=== PATIENT | male | born 1965 | race Caucasian/White ===

== ENCOUNTER 2016-09-29 12:04 | Outpatient (CLI) ==
[2016-09-29 12:21] LABS: BASOPHILS # (AUTO) 0.1 K/uL (0-0.2); BASOPHILS % (AUTO) 0.9 % (0.0-3.0); EOSINOPHILS # (AUTO) 0.2 K/ul (0.0-0.7); HEMATOCRIT 46.8 % (42.0-52.0); HEMOGLOBIN 16.8 g/dl (14.0-18.0); IMMATURE GRANULOCYTE % (AUTO) 0.2 % (0.0-5.0); LYMPHOCYTES # (AUTO) 2.6 K/uL (0.60-3.4); LYMPHOCYTES % (AUTO) 31.8 (10.0-50.0); MEAN CORPUSCULAR HEMOGLOBIN 31.3 pg (27.0-31.0); MEAN CORPUSCULAR HGB CONC 35.9 (31.8-35.4); MEAN CORPUSCULAR VOLUME 87.2 fl (80.0-94.0); MONOCYTES # (AUTO) 0.6 K/uL (0.4-2.0); MONOCYTES % (AUTO) 7.8 (0-10); NEUTROPHILS # (AUTO) 4.5 K/ul (2.0-6.9); NEUTROPHILS % (AUTO) 56.3; PLATELET COUNT 305 10^3/uL (140-440); RED BLOOD COUNT 5.37 10^6/ul (4.70-6.10); WHITE BLOOD COUNT 8.03 K/ul (4.2-10.2)
--- NOTE | 2016-09-29 13:00 | DI ---
EXAM: Left shoulder three views HISTORY: Pain COMPARISON: None FINDINGS: The bones are normal. The medial, lateral, and patellofemoral compartments are normal in height. No joint effusion. IMPERSSION: Normal examination.
== END 2016-09-29 12:05 | disposition home or self-care (01) ==
LOC: LAB 12:04
PROVIDERS: ATTEND Nurse Practitioner
DX: M25.512 Pain in left shoulder (principal); E11.40 Type 2 diabetes mellitus with diabetic neuropathy, unspecified; K92.1 Melena; R10.30 Lower abdominal pain, unspecified
CPT/HCPCS: 36415; 85025

== ENCOUNTER 2017-10-25 08:57 | Outpatient (CLI) | END 2017-10-25 08:58 | disposition home or self-care (01) | LOC: LAB 08:57 | PROVIDERS: ATTEND Nurse Practitioner | DX: E11.65 Type 2 diabetes mellitus with hyperglycemia (principal); E55.9 Vitamin D deficiency, unspecified; E78.00 Pure hypercholesterolemia, unspecified | CPT/HCPCS: 36415; 80053; 80061; 82043; 82306; 82607; 83036 ==

== ENCOUNTER 2018-03-22 09:38 | Outpatient (CLI) | END 2018-03-22 09:39 | disposition home or self-care (01) | LOC: LAB 09:38 | PROVIDERS: ATTEND Nurse Practitioner | DX: E55.9 Vitamin D deficiency, unspecified (principal); E11.65 Type 2 diabetes mellitus with hyperglycemia; R53.83 Other fatigue | CPT/HCPCS: 36415; 80048; 82306; 83036; 84402; 84403 ==

== ENCOUNTER 2018-07-24 08:32 | Outpatient (CLI) ==
--- NOTE | 2018-07-24 09:06 | DI ---
EXAM: CHEST FRONTAL AND LATERAL VIEWS HISTORY: Chest pain. COMPARISON: 06/05/2014 FINDINGS: Heart size and mediastinal contour within normal limits. No acute infiltrates. Ellie l vascularity with no pleural fluid or pneumothorax. The bony thorax has no acute finding. Stabiliz ation hardware of the cervical spine. IMPRESSION: No acute process.
--- NOTE | 2018-07-24 09:09 | DI ---
EXAM: Lumbar spine five views HISTORY: Back pain, radiation down left leg. FINDINGS: Compared to 02/17/2014. General bone density appears normal. No noticeable scoliosis. Mild bilateral sacroiliac joint arthr opathy. Postop changes of the lumbosacral junction appear stable. There is no spondylolisthesis, lo ss of vertebral body height or acute fracture. Degenerative disc and facet disease lower lumbar spin e and lumbosacral junction with probable bony encroachment on the neural foramina at this level. Vas cular calcifications incidentally noted. IMPRESSION: Degenerative disc and facet disease lower lumbar spine and lumbosacral junction with pro bable bony encroachment on the neural foramina at this level. Stable postop changes of the lower spi ne. No acute fracture.
== END 2018-07-24 08:33 | disposition home or self-care (01) ==
LOC: CAR 08:32
PROVIDERS: ATTEND Nurse Practitioner
DX: R07.9 Chest pain, unspecified (principal); E11.65 Type 2 diabetes mellitus with hyperglycemia; R53.81 Other malaise; R53.83 Other fatigue; M54.5 Low back pain
CPT/HCPCS: 36415; 80048; 83036; 83735; 84402; 84403; 93005; 93010

== ENCOUNTER 2018-09-05 13:29 | Outpatient (CLI) ==
--- NOTE | 2018-09-05 14:30 | DI ---
Exam: Seven views of the lumbosacral spine with flexion and extension imaging. Comparison: 07/24/2018. Reason for exam: Osteoarthritis. FINDINGS: Similar appearing operative changes are seen after pedicle screw and freida fixation spanning L5-S1 with intervertebral body graft arthroplasty at L4-L5. There is similar appearing moderate deg enerative disease with osteophyte formation. There is no evidence of hardware complication or graft extrusion. No abnormal motion segments are seen with flexion or extension radiographs. Impression: 1. Similar appearing operative changes without evidence of periprosthetic fracture or hardware compl ication. 2. No acute fracture is seen. 3. No abnormal motion segments with flexion or extension imaging
--- NOTE | 2018-09-05 14:33 | DI ---
Exam: Two views Bilateral hips include pelvis. Comparison: MRI left hip performed 03/28/2016. Reason for exam: Hip pain. FINDINGS: The pelvic ring is intact. No acute fracture or dislocation is seen in either hip. There is mild degenerative disease seen in both left and right hip. Partially imaged operative changes ar e seen in the lumbosacral spine. Impression: No acute fracture or dislocation is seen in either hip.
== END 2018-09-05 13:30 | disposition home or self-care (01) ==
LOC: RAD 13:29
PROVIDERS: ATTEND Neurological Surgery
DX: R10.32 Left lower quadrant pain (principal); G89.29 Other chronic pain; M25.552 Pain in left hip; M47.26 Other spondylosis with radiculopathy, lumbar region; M54.5 Low back pain

== ENCOUNTER 2018-10-11 18:36 | Emergency (ER) | payer BC, OTHER ==
[2018-10-11 18:44] VITALS: TEMP 96.7; BMI 33.4
--- NOTE | 2018-10-11 19:06 | ED.PDOC ---
General ED Provider: Dr. HUMBLE OLIVER MD Chief Complaint: Headache Stated Complaint: LEBRON like before Time Seen by Physician: 19:00 Mode of Arrival: Wheelchair Information Source: Patient, Family Exam Limitations: No limitations Primary Care Provider: JOSE LESTER Nursing and Triage Documentation Reviewed and Agree: Yes Does patient meet sepsis criteria?: No If yes, has appropriate treatment been initiated?: Yes System Inflammatory Response Syndrome: Not Applicable Sepsis Protocol: For patient's 13 years and over: Temp is 96.8 and below OR 101 and greater Pulse >90 BPM Resp >20/minute Acutely Altered Mental Status Are patient's symptoms suggestive of a new infection, such as: -Pneumonia -Skin, Soft Tissue -Endocarditis -UTI -Bone, Joint Infection -Implantable Device -Acute Abdominal Infection -Wound Infection -Meningitis -Blood Stream Catheter Infection -Unknown Review of Systems - Review Of Systems Constitutional: Reports: No symptoms Eyes: Reports: No symptoms Ears, Nose, Mouth, Throat: Reports: No symptoms Respiratory: Reports: No symptoms Cardiac: Reports: No symptoms GI: Reports: No symptoms, Nausea : Reports: No symptoms Musculoskeletal: Reports: No symptoms Skin: Reports: No symptoms Neurological: Reports: No symptoms, Other (LEBRON almost gone since laying down) Endocrine: Reports: No symptoms Hematologic/Lymphatic: Reports: No symptoms All Other Systems: Reviewed and Negative Past Medical History - Past Medical History Endocrine: Reports: DM 1 Cardiovascular: Reports: Hypertension Respiratory: Reports: None Hematological: Reports: None Gastrointestinal: Reports: GERD Genitourinary: Reports: None Neuro/Psych: Reports: None Musculoskeletal: Reports: Back Pain, Joint Pain 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) - Surgical History General Surgical History: Reports: Back Surgery - Family History Family History: Reports: Unknown - Social History Smoking Status: Chews tobacco Hx Substance Use: No Alcohol Screening: Occasionally - Immunizations Tetanus Shot up to Date: No Physical Exam - Physical Exam Appearance: Well-appearing, Obese Pain Distress: Mild Eyes: KATIA, EOMI, Conjunctiva clear ENT: Ears normal, Nose normal, Oropharynx normal Neck: Supple Respiratory: Airway patent Cardiovascular: RRR, Pulses normal, No rub, No murmur GI/: Soft Musculoskeletal: Normal strength, ROM intact, No edema, No calf tenderness Skin: Warm, Dry, Normal color Neurological: Sensation intact, Motor intact, Reflexes intact, Cranial nerves intact, Alert, Oriented Psychiatric: Affect appropriate, Mood appropriate, Anxious Critical Care Note - Critical Care Note Total Time (mins): 0 Course - Course Hematology/Chemistry: 10/11/18 19:16 10/11/18 19:16 Orders, Labs, Meds: Lab Review 10/11/18 10/11/18 10/11/18 19:16 19:16 20:34 WBC 16.69 H RBC 5.62 Hgb 17.2 Hct 48.6 MCV 86.5 MCH 30.6 MCHC 35.4 RDW Coeff of Ilir 12.2 Plt Count 335 Immature Gran % (Auto) 0.4 Neut % (Auto) 75.4 Lymph % (Auto) 16.5 Boyd % (Auto) 6.2 Eos % (Auto) 1.1 Baso % (Auto) 0.4 Immature Gran # (Auto) 0.1 Neut # (Auto) 12.6 H Lymph # (Auto) 2.8 Boyd # (Auto) 1.0 Eos # (Auto) 0.2 Baso # (Auto) 0.1 Sodium 136.8 Potassium 3.83 Chloride 99.0 Carbon Dioxide 22.1 Anion Gap 19.53 BUN 19.7 Creatinine 1.01 Estimated GFR (MDRD) 77.00 BUN/Creatinine Ratio 19.50 Glucose 284.5 H Calcium 10.24 H Urine Color Yellow Urine Clarity Clear Urine pH 5.0 Ur Specific [place] 1.015 Urine Protein Negative Urine Glucose (UA) 2+ Urine Ketones 2+ Urine Blood Negative Urine Nitrite Negative Urine Bilirubin Negative Urine Urobilinogen 0.2 Ur Leukocyte Esterase Negative Orders Category Date Time Status IV [ED IV/MEDIPORT/POWERPORT] .ONCE EMERGENCY 10/11/18 19:29 Active BMP [BASIC METABOLIC PANEL] Stat LAB 10/11/18 19:16 Completed CBC W/ AUTO DIFF Stat LAB 10/11/18 19:16 Completed UA [URINALYSIS C & S IF INDICATED] Stat LAB 10/11/18 20:34 Completed 0.9 % Sodium Chloride [Saline Flush] MEDS 10/11/18 19:29 Ordered 1 syr IVF PRN PRN Ketorolac Tromethamine [Toradol] MEDS 10/11/18 19:08 Discontinued 60 mg IVP ONCE STA Meclizine HCl [Antivert] MEDS 10/11/18 22:25 Discontinued 25 mg PO ONCE STA Ondansetron HCl/Pf [Zofran 4 mg/2 ml] MEDS 10/11/18 19:07 Discontinued 4 mg IVP ONCE STA Sodium Chloride 0.9% [Sodium Chloride] 1,000 ml MEDS 10/11/18 19:07 Discontinued IV BOLUS Sodium Chloride 0.9% [Sodium Chloride] 1,000 ml MEDS 10/11/18 20:53 Discontinued IV BOLUS CXR [CHEST, 2 VIEWS PA & LAT] Stat RADS 10/11/18 19:52 Completed KUB [ABDOMEN 1 VIEW] Stat RADS 10/11/18 19:53 Completed Medications Generic Name Dose Route Start Last Admin Trade Name Freq PRN Reason Stop Dose Admin Sodium Chloride 1 syr 10/11/18 19:29 10/11/18 19:34 Saline Flush IVF 1 syr PRN PRN Administration To flush IV Discontinued Medications Generic Name Dose Route Start Last Admin Trade Name Freq PRN Reason Stop Dose Admin Sodium Chloride 1,000 mls @ 1,000 mls/hr 10/11/18 19:07 10/11/18 19:30 Sodium Chloride IV 10/11/18 20:06 1,000 mls/hr BOLUS STA Administration Sodium Chloride 1,000 mls @ 1,000 mls/hr 10/11/18 20:53 10/11/18 21:03 Sodium Chloride IV 10/11/18 21:52 1,000 mls/hr BOLUS STA Administration Ketorolac Tromethamine 60 mg 10/11/18 19:08 10/11/18 19:34 Toradol IVP 10/11/18 19:09 60 mg ONCE STA Administration Meclizine HCl 25 mg 10/11/18 22:25 10/11/18 22:37 Antivert PO 10/11/18 22:26 25 mg ONCE STA Administration Ondansetron HCl 4 mg 10/11/18 19:07 10/11/18 19:32 Zofran 4 Mg/2 Ml IVP 10/11/18 19:08 4 mg ONCE STA Administration Vital Signs: Temp Pulse Resp BP Pulse Ox 10/11/18 23:54 79 144/85 H 98 10/11/18 21:27 67 134/73 100 10/11/18 19:14 71 125/79 97 10/11/18 18:37 96.7 F L 67 20 122/90 97 Departure - Departure Time of Disposition: 23:58 Disposition: HOME SELF-CARE Discharge Problem: Vertigo Headache Qualifiers: Headache type: unspecified Headache chronicity pattern: acute headache Intractability: not intractable Qualified Code(s): R51 - Headache Instructions: Migraine Headache (ED), Vertigo (ED) Condition: Good Pt referred to PMD for follow-up: Yes IPMP verified?: No Prescriptions: Meclizine HCl [Antivert] 25 mg PO TID 10 Days #30 tablet NS Allergies/Adverse Reactions: Allergies No Known Allergies Allergy (Unverified 10/11/18 18:59) Home Medications: Ambulatory Orders Albuterol Sulfate [Proair Hfa] 2 puff IH DAILY PRN 10/11/18 Cyanocobalamin (Vitamin B-12) [Cyanocobalamin Injection] 1,000 ml IM MONTHLY Empagliflozin/Linagliptin [Glyxambi 25 mg-5 mg Tablet] 1 tab PO DAILY 10/11/18 Ergocalciferol (Vitamin D2) [Vitamin D2] 50,000 unit PO WEEKLY 10/11/18 Esomeprazole Magnesium 20 - 40 mg PO DAILY 10/11/18 Hydrocodone/Acetaminophen [Gray 10-325 Tablet] 1 each PO TID 10/11/18 Insulin Glargine,Hum.rec.anlog [Toujeo Solostar] 60 unit SQ DAILY 10/11/18 Insulin Lispro [Humalog] 0.7 ml SQ DIRECTED 10/11/18 Lisinopril 40 mg PO DAILY 10/11/18 Meloxicam 15 mg PO DAILY 10/11/18 Metformin HCl 1,000 mg PO BID 10/11/18 Metoprolol Tartrate 100 mg PO BID 10/11/18 Pioglitazone HCl [Actos] 30 mg PO DAILY 10/11/18 Trazodone HCl 100 - 150 mg PO BEDTIME 10/11/18 Meclizine HCl [Antivert] 25 mg PO TID 10 Days #30 tablet NS 10/12/18 Transfer Form Completed: No Disposition Discussed With: Patient, Family
[2018-10-11] MEDS ORDERED: ZOFRAN 4 MG/2 ML IVP STA (19:07)
[2018-10-11] MEDS ORDERED: SODIUM CHLORIDE 1,000 ML IV STA ×2 (19:07→20:53)
[2018-10-11] MEDS ORDERED: TORADOL IVP STA (19:08)
--- NOTE | 2018-10-11 20:24 | DI ---
EXAM: Two-view chest HISTORY: Elevated white count. TECHNIQUE: Frontal and lateral views of the chest were obtained. Comparison to 11/2018. FINDINGS: The heart is normal size. Lungs are clear. The pulmonary vasculature appears normal. Th e costophrenic angles are sharp. IMPRESSION: No active cardiopulmonary disease.
--- NOTE | 2018-10-11 20:26 | DI ---
Exam: Single view of the abdomen. Comparison: CT abdomen pelvis performed 01/28/2016. Reason for exam: Elevated white count fossa. FINDINGS: The bowel gas pattern appears nonspecific and nonobstructive. Operative changes are seen in the lumbosacral spine. The pelvic ring appears intact. Rounded structure within the pelvis presu mably the urinary bladder. Impression: Nonspecific, nonobstructive bowel gas pattern. If clinical concern exists for obstruction, CT imagin g could be performed for further characterization.
[2018-10-11] MEDS ORDERED: ANTIVERT PO STA (22:25)
[2018-10-11 23:58] VITALS: BP 144/85
== END 2018-10-12 00:22 | disposition home or self-care (01) ==
LOC: ED 18:36
DX: R51 Headache (principal); R42 Dizziness and giddiness; E10.9 Type 1 diabetes mellitus without complications; I10 Essential (primary) hypertension; Z72.0 Tobacco use; Z79.899 Other long term (current) drug therapy
CPT/HCPCS: 36415; 80048; 81001; 85025; 96361; 96374; 96375; 99283

== ENCOUNTER 2018-10-21 09:26 | Outpatient (CLI) ==
--- NOTE | 2018-10-21 10:31 | CT ---
EXAM: CT of the head without contrast History: Headaches. Vertigo Technique: Multiplanar CT images through the head were obtained without the administration of IV con trast Findings: The visualized paranasal sinuses and mastoid air cells are clear in general. No acute pedro varial abnormalities. Intracranially the ventricular and cisternal spaces are normal in size, shape and configuration for a patient of this age. No dominant mass or midline shift. No hydrocephalous. No acute intracranial hemorrhage or abnormal extraaxial fluid collections. 1.8 cm hypoattenuating area within the left cer ebellum. 2.8 cm lipoma of the left parietal scalp. Impression: 1. No acute intracranial hemorrhage. 2. Left cerebellar hypodense lesion. Differential diagnosis includes infarction or mass lesion. Re commend further evaluation with brain MRI with and without contrast.
== END 2018-10-21 09:27 | disposition home or self-care (01) ==
LOC: RAD 09:26
PROVIDERS: ATTEND Nurse Practitioner
DX: R51 Headache (principal)

== ENCOUNTER 2018-10-28 12:04 | Outpatient (CLI) ==
--- NOTE | 2018-10-28 18:32 | MRI ---
EXAM: Brain MRI with and without contrast. HISTORY: Headaches and vertigo. Abnormal findings on head CT. COMPARISON: Head CT 10/21/2018. TECHNIQUE: Multiplanar, multisequence MR images were acquired of the brain before and after administ ration of 20 ml of Dotarem intravenous contrast. FINDINGS: The midline structures are central and the craniocervical junction is unremarkable. There is mild enlargement of the subarachnoid space over both frontal lobes at the convexity and there is mild enlargement of the lateral and third ventricles. There is mild widening and mild prominence of some sulci and mild prominence of the sylvian fissures. These findings are compatible with mild diff use cerebral volume loss. There are no abnormal extra-axial fluid collections. The brain parenchyma has a small subacute infarct in the left posterolateral medulla with bright B 10 00, isointense ADC signal and mild focal bright T2 signal. There is a faint mildly irregular patchy triangular shaped area of fading diffusion restriction with faint bright B 1000, dark, isointense ADC signal and patchy bright FLAIR signal in the left posterior medulla. This shows patchy enhancement after administration of contrast which may reflect luxury perfusion or blood brain barrier breakdown in these findings are consistent with a small area of subacute ischemia. This corresponds with the r ecent head CT scan. Artifact is noted in the lateral left cerebellum on the B 1000 images. There ar e a few 1-2 mm FLAIR hyperintensities in the bilateral parietal periventricular white matter compatib le minimal leukomalacia which is nonspecific. Remainder of the brain parenchyma is unremarkable. Th ere are no abnormal foci of dark gradient echo signal. Administration of gadolinium, no enhancing ma sses are identified. The corpus callosum is normal. The pituitary gland is normal in size with homo geneous contrast enhancement. There are no intraorbital masses. There is mild leftward nasal septal deviation with a small spur. Minor scattered mucosal thickening is present in the ethmoid air cells. Remainder of the paranasal s inuses, middle ears and mastoids are unremarkable. There is no abnormal contrast enhancement in the internal auditory canals or labyrinthine structures. There is a well-circumscribed 2.8 cm AP by 5.2 cm CC by 1.5 cm left parietal scalp lesion. This has bright T1 signal with a single thin septation or vessel and peripheral rim of probable fibrosis. Adm inistration of contrast, on the fat saturated sequence. No enhancement is identified and there is sa turation of the fat. There is minor enhancement in a few vessels in this region. These findings are most consistent with a left parietal scalp lipom the calvarium demonstrates no destructive osseous l esions. Expected flow voids are present in the major intracranial arteries and dural venous sinuses. IMPRESSION: 1. Unexpected result. Small subacute infarct left posterolateral medulla and small patchy area of s ubacute ischemia posterior left cerebellum that corresponds with the recent head CT scan. 2. Mild diffuse cerebral volume loss and minimal leukomalacia that may be due to chronic microvascul ar ischemic disease. 3. No intracranial mass or hemorrhage. 4. 2.8 cm AP by 1.5 cm thick by 5.2 cm CC left parietal scalp lipoma. Short-term follow-up may be c onsidered to ensure stability.
== END 2018-10-28 12:05 | disposition home or self-care (01) ==
LOC: RAD 12:04
PROVIDERS: ATTEND Nurse Practitioner
DX: R93.0 Abnormal findings on diagnostic imaging of skull and head, not elsewhere classified (principal)

== ENCOUNTER 2019-02-03 09:07 | Outpatient (CLI) ==
--- NOTE | 2019-02-03 13:25 | CT ---
EXAM: CTA of the neck was performed with and without contrast TECHNIQUE: Helical axial CTA of the neck was performed with and without contrast with multiplanar re constructions and separate work station 3-D renderings. COMPARISON: CT angiogram of the head from the same day HISTORY: Prior stroke FINDINGS: There is no acute soft tissue abnormality. There are no neck masses or pathologic lymph nod es. The thyroid gland is unremarkable. No acute abnormality in the upper chest. There are no acute os seous abnormalities. There is some degenerative change in the cervical spine.The parotid glands have a somewhat heterogeneous enhancement pattern. There has been prior cervical fusion. Aorta: There is advanced calcific atherosclerosis of the aorta with no evidence for dissection or an eurysm. The bilateral subclavian and brachio-cephalic arteries are widely patent. There is normal b ranching anatomy of the great vessels. Right carotid artery: The origin of the right common carotid artery off the brachiocephalic and the common carotid artery in the neck are widely patent. There is a moderate eccentric soft plaque invol ving the proximal aspect of the right internal carotid artery resulting in about 50-60% stenosis. Mo re distally in the neck the right internal carotid artery is widely patent although quite tortuous. Right vertebral artery: The origin of the right vertebral artery from the right subclavian artery is widely patent. The course of the right vertebral artery in the neck is normal with no focal stenosi s or dissection or aneurysm. Left carotid artery: The origin of the left common carotid artery off the aortic arch and the common carotid artery in the neck are widely patent. The left carotid bifurcation, external carotid artery and the cervical left internal carotid artery are all widely patent. There is no evidence for aneur ysm or focal stenosis or dissection. Left vertebral artery: The origin of the left vertebral artery off of the left subclavian artery is widely patent. The course of the left vertebral artery in the neck is unremarkable with no focal sumeet nosis or aneurysm or dissection. The left vertebral artery is very diminutive however. IMPRESSION: 1. Moderate atherosclerosis of the proximal right carotid artery resulting in about 50 to 60% steno sis at the bifurcation. 2. The carotid arteries are otherwise widely patent but very tortuous. 3. Widely patent bilateral vertebral arteries however the left vertebral artery is very diminutive. 4. Heterogeneous enhancement pattern of the bilateral parotid glands. Correlate for possible autoim mune disorder such as Sjogren's syndrome.
--- NOTE | 2019-02-03 13:27 | CT ---
EXAM: CT angiogram of the [place] with and without contrast TECHNIQUE: Helical axial CT angiogram of the [place] was performed with and without contras t with coronal and sagittal and multiplanar reconstructions as well as separate work station 3-D siva watson. COMPARISON: CT angiogram of the neck from today and CT of the head from 10/21/2018 and brain MRI fro m 10/28/2018. 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 FINDINGS: Right internal carotid artery distribution: There is extensive calcific atherosclerosis of the right carotid siphon and the supraclinoid segment which results in about 50-60% luminal diameter narrowing. The M1 segment, bifurcation, M2 segments and opercular branches of the middle cerebral artery as wel l as the A1 and A2 segments of the anterior cerebral artery and their visualized branches are all wid bob patent. Left internal carotid artery distribution: The left internal carotid artery is widely patent. The M1 segment, bifurcation, M2 segments and opercular branches of the middle cerebral artery as well as the A1 and A2 segments of the anterior cerebral artery and their visualized branches are all widely mcgrath nt. Anterior communicating artery: Patent. Posterior communicating arteries: Not seen on the right and widely patent on the left. Vertebral basilar system: The left vertebral artery is extremely diminutive and only supplies the lef t posterior inferior cerebellar artery territory. On the earlier MRI there is normal caliber of the d istal left V4 segment which appears to be thrombosed. The right vertebral artery and the basilar stephen ry are patent as well as the posterior cerebral arteries. There are no aneurysms or vascular malformations. The dural sinuses are widely patent. CT head was performed without contrast as part of the examination. Coronal reformats were performed . There is no acute intervening intracranial abnormality. There is no hemorrhage or mass or subdural o r hydrocephalus. Again seen is a prior infarction in the left cerebellum. There is no evidence for prior posterior cerebral artery territory infarction. Brain parenchyma ventricles and sulci are othe rwise normal. The bilateral orbits are unremarkable. There is no significant mastoid air cell flui d. The paranasal sinuses demonstrate trace membrane thickening but no air-fluid levels. There are n o acute calvarial abnormalities. There is a left parietal incidental scalp lipoma. Again noted is h eterogeneous enhancement of the bilateral parotid glands. IMPRESSION: 1. 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 This may be on the basis of earlier dissection or atherosclerotic occlusion. The right vertebral and basilar arteries are widely patent. 2. Advanced atherosclerosis of the right carotid siphon as described with resulting 50-60% stenosis. 3. Widely patent left carotid system and middle cerebral and anterior cerebral arteries. 4. Heterogeneous enhancement of the bilateral parotid glands. Correlate for possible autoimmune dis order such as Sjogren's syndrome.
== END 2019-02-03 09:08 | disposition home or self-care (01) ==
LOC: RAD 09:07
PROVIDERS: ATTEND Psychiatry & Neurology Neurology
DX: I63.542 Cerebral infarction due to unspecified occlusion or stenosis of left cerebellar artery (principal)

== ENCOUNTER 2019-02-20 09:15 | Outpatient (CLI) | END 2019-02-20 09:16 | disposition home or self-care (01) | LOC: LAB 09:15 | PROVIDERS: ATTEND Nurse Practitioner | DX: E07.89 Other specified disorders of thyroid (principal); E11.65 Type 2 diabetes mellitus with hyperglycemia; E55.9 Vitamin D deficiency, unspecified; M25.50 Pain in unspecified joint; R42 Dizziness and giddiness; R63.4 Abnormal weight loss | CPT/HCPCS: 36415; 80053; 82306; 83036; 84443; 85025; 86038; 86376 ==